=== PATIENT | female | born 1995 | race Caucasian/White ===

== ENCOUNTER 2018-12-28 08:07 | Day surgery (SDC) | payer OTHER ==
[~2018-12-28 08:07] MED LIST: DEXAMETHASONE 10 MG/ML VIAL ONE; FENTANYL CITR 250 MCG/5 ML ONE; LIDOCAINE 1% MPF 5 ML VIAL ONE; MIDAZOLAM HCL 2 MG/2 ML INJ ONE; Mastisol Adhesive Liq ONE; NS 0.9% VIAL 10 ML ONE; ONDANSETRON 4 MG/2 ML VIAL ONE; PROPOFOL 200 MG/20 ML VIAL IV ONE; Ringers Lactate 1,000 ML IV ONE; VECURONIUM 10 MG/VIAL IV ONE
[2018-12-28] MEDS ORDERED: SCOPOLAMINE HYDROBROMIDE PATCH TD ONE (08:29)
[2018-12-28] MEDS ORDERED: Ringers Lactate 1,000 ML IV ONE (08:29)
[2018-12-28] MEDS ORDERED: CEFAZOLIN/SWI 1gm 1 GM/10 ML SYR ONE (08:29)
[2018-12-28 08:32] LABS: Specific Gravity 1.025 (1.005-1.030)
[2018-12-28] MEDS ORDERED: ROCURONIUM 50 MG/5 ML VIAL IV ONE ×2 (10:41→12:45)
[2018-12-28] MEDS ORDERED: KETOROLAC 30 MG/ML INJ ONE (12:45)
[2018-12-28] MEDS ORDERED: ONDANSETRON 4 MG/2 ML VIAL ONE (12:45)
[2018-12-28] MEDS ORDERED: GLYCOPYRROLATE 0.2 MG/ML SYR ONE (12:45)
[2018-12-28] MEDS ORDERED: NEOSTIGMINE 1 MG/ML -10 ML VIAL ONE (13:03)
[2018-12-28] MEDS ORDERED: MEPERIDINE HCL 25 MG/0.5 ML ONE (13:33)
[2018-12-28] MEDS: HYDROMORPHONE HCL 2 MG/ML inj ONE ×3 (14:08→14:35)
[2018-12-28] MEDS ORDERED: HYDROCODONE/APAP 5/325 MG TAB ONE (15:50)
--- NOTE | 2018-12-29 00:48 | OP ---
Date of Procedure: 12/28/2018 Surgeon: Cruz Walker MD Driver Retraining Instructor: Jacob. Preoperative Diagnosis: Breast asymmetry, descent. Postoperative Diagnosis: Breast asymmetry, descent. Procedure Performed: Lift with reduction of 100 g on the left and 60 g on the right. Anesthesia: General. Procedure In Detail: After satisfactory induction of general anesthesia, chest was prepped with DuraPrep. Dry sterile drapes were applied in the usual manner. A 38 mm template was used to outline the right and left areola. Then, transverse and curvilinear inferior incisions were made. The intervening skin was de-epithelialized with EpiCut or dermabrader. [place] glands were cored out with a skin punch and EpiCut. After de-epithelialization, scalpel was used to make a transverse incision and the flaps were elevated. The flaps were extremely thick and elevated towards the sternum, clavicle, anterior and axillary line on the both sides simultaneously. After that was done, the inferior incision was made and then the de-epithelialized flap was formed into a cone. This was done with 2-0 PDS sutures interrupted. Then, the straps were elevated on the right breast at 12 o'clock, 1:30, and 3 o'clock position, then mirror image on the left side. Then the straps were woven in and out the pectoralis major muscle, back to the base of the cone, back to the pectoralis major muscle and tied themselves to the base of the cone with 2-0 PDS. This was done for the 12 o'clock. 1:30 strap. The 3 o'clock strap was sewn over the sternum at the 3 o'clock position with 2-0 Ethibond. Left side was done on mirror image manner. The left side had more breast tissue. Excess tissue was cut off after the cone was made and then the skin was redraped. A 10 CONNIE was brought out axilla, sewn in place with 2-0 silk. The wound was irrigated with antibiotic solution and closed in layers with 3-0 Vicryl subcu, 3-0 PDS running subcuticular, tied from medial to lateral and lateral to medial in the vertical meridian of the breast. Both sides were done simultaneously and then the patient was sat up. Site for new nipple-areolar complex was marked out. Tissue was cored out, nipple was delivered with a 38-mm coil and closure consisted of 4-0 PDS in deep dermis, 4-0 PDS running subcuticular followed by tincture of benzoin, Steri-Strips, 5x5s, large fluffs, and [place] wrap. The patient tolerated the procedure well. Amount removed from the right breast was 60 g; left breast, was 100 g. DHARA Voice ID: [id number] Report ID: [id number] [facility] CENTERFernanda
== END 2018-12-28 16:19 | disposition home or self-care (01) ==
LOC: OR 08:07
PROVIDERS: ATTEND Specialist
PROC: 0H0V0ZZ Alteration of Bilateral Breast, Open Approach (ICD-10-PCS; 2018-12-28)
PROC: 0H0V0ZZ Alteration of Bilateral Breast, Open Approach (ICD-10-PCS; principal; 2018-12-28 09:00)
DX: N64.81 Ptosis of breast (principal); N64.89 Other specified disorders of breast
CPT/HCPCS: 81025; 88305; J0690; J1100; J1170; J2175; J2250; J2405; J2704; J2710; J3010